=== PATIENT | female | born 1990 | race Caucasian/White ===

== ENCOUNTER 2016-07-06 05:09 | Day surgery (SDC) | payer OTHER ==
[2016-07-03 16:19] VITALS: BMI 27.3
[2016-07-06] MEDS ORDERED: LIDOCAINE HCL 1%, 10 MG/ML (20ML VIAL) ONE ×2 (09:32→10:13)
[2016-07-06] MEDS ORDERED: MIDAZOLAM HCL 2 MG/2 ML SINGLE DOSE VIAL ONE (10:03)
[2016-07-06] MEDS ORDERED: PROPOFOL 20 ML ONE ×2 (10:04→10:05)
[2016-07-06] MEDS ORDERED: BUPIVACAINE HCL/PF 0.5% (5MG/ML) 10 ML VIAL ONE (10:18)
[2016-07-06] MEDS ORDERED: LIDOCAINE HCL 1%, 10 MG/ML (20ML VIAL) IJ ONE ×2 (10:28)
[2016-07-06] MEDS ORDERED: BUPIVACAINE HCL/PF 0.5% (5MG/ML) 10 ML VIAL IJ ONE ×2 (10:28)
[2016-07-06] MEDS ORDERED: ONDANSETRON 4 MG/2 ML VIAL ONE (10:39)
--- NOTE | 2016-07-06 10:50 | OP ---
Operative Note - Note: Operative Date: 07/06/16 Pre-Operative Diagnosis: lipoma right anterior shoulder Operation: excision lipoma Findings: 8.0 cm. greatest dimension subfascial lipoma Post-Operative Diagnosis: Same as Pre-op Surgeon: Oral [employer] Laborer: Trina Manriquez Anesthesia: MAC Specimens Removed: lipoma Estimated Blood Loss (mls): 5 Operative Report Dictated: Yes
--- NOTE | 2016-07-06 11:01 | SURG ---
Surgery Client Administrator Note Client Administrator: Trina Manriquez PA-C Date of Service: 07/06/16 Diagnosis: lipoma right anterior shoulder Procedure: excision lipoma I was present for the entirety of the operative procedure. For further detail, please refer to operative report. Visit type - Case Type Case Type: Scheduled Admission - New patient This patient is new to me today: Yes Date on this admission: 07/06/16
[2016-07-06] MEDS ORDERED: ONDANSETRON 4 MG/2 ML VIAL IVPUSH PRN (11:03)
[2016-07-06 13:14] VITALS: BP 104/56; PULSE 70
[2016-07-06 15:20] VITALS: TEMP 98.3
--- NOTE | 2016-07-07 12:14 | PATH ---
Surgical Pathology Report Patient Name: AYANA DIAZ [facility]. Rec. #: [id number] /Age/Gender: 1990 (Age: 25) / F Account: [id number] Location: [facility] SURGICAL Taken: 07/06/2016 Received: 07/06/2016 Reported: 07/07/2016 Physicians: Bonilla Castillo MD Specimen(s) Received MASS RIGHT ANTERIOR SHOULDER Clinical History Mass right anterior shoulder Final Diagnosis SOFT TISSUE, RIGHT ANTERIOR SHOULDER, MASS, EXCISION: MATURE BENIGN ADIPOSE TISSUE CONSISTENT WITH LIPOMA. Electronically Signed Johnny Huerta M.D. Gross Description Received in formalin, labeled "mass right anterior shoulder" is a 5.7 x 4.0 x 2.0 cm portion of yellow, lobulated adipose tissue. Sectioning reveals homogeneous yellow, smooth fat. No areas of hemorrhage or necrosis are identified. Yard Rigger sections are submitted in 2 cassettes. /07/06/2016 saudi07/06/2016
--- NOTE | 2016-07-08 11:35 | OP ---
DATE OF OPERATION: 07/07/2016 PREOPERATIVE DIAGNOSIS: Lipoma of the right anterior shoulder. POSTOPERATIVE DIAGNOSIS: Lipoma of the right anterior shoulder. PROCEDURE: Excision, lipoma of the right anterior shoulder. SURGEON: Oral Castillo MD CRYPTOZOOLOGIST: Trina Manriquez PA-C ANESTHESIA: Local with IV sedation. OPERATIVE FINDINGS: There was an approximately 8-cm subfascial lipoma involving the right anterior shoulder. The rest of the findings were unremarkable. DESCRIPTION OF PROCEDURE: The patient was placed on the operating table in the supine position, and the right shoulder was prepped with ChloraPrep and draped in sterile fashion. A timeout was taken, and then, the incision was mapped out over the mass and the skin infiltrated with 1% lidocaine and 0.50% Marcaine in equal concentration. An incision was made with a scalpel and taken down through skin and subcutaneous tissue and the fascia. The mass was identified, and using blunt and sharp dissection, it was mobilized and excised down to its origin of the fascia of the shoulder. The pedicle was clamped, the mass excised and sent for pathological examination, and the pedicle ligated with 2-0 Vicryl suture. Hemostasis was secured with electrocautery and the wound copiously irrigated with sterile saline. The fascia was closed with interrupted 2-0 Vicryl, the deep dermis with interrupted 3-0 Vicryl, and the skin edges with 4-0 Biosyn in a subcuticular continuous fashion. Steri-Strips, fluffs, and a Tegaderm dressing were placed, and the procedure terminated at this point and the patient transferred to the postanesthesia care unit in stable condition, awake and alert. ESTIMATED BLOOD LOSS: 5 mL. REPLACEMENTS: Crystalloid. DRAINS: None. SPECIMEN: Lipoma to Pathology. I, Oral Castillo MD, was physically present in the operating room from the time the patient was placed on the operating table until she was transferred to the postanesthesia care unit in my accompaniment. Oral Castillo MD /[id number]
== END 2016-07-06 13:05 | disposition home or self-care (01) ==
LOC: JASU-SURG 05:09
PROVIDERS: ATTEND Surgery
PROC: 0JBD0ZZ Excision of Right Upper Arm Subcutaneous Tissue and Fascia, Open Approach (ICD-10-PCS; principal; 2016-07-06 10:00)
DX: D17.21 Benign lipomatous neoplasm of skin and subcutaneous tissue of right arm (principal)
CPT/HCPCS: 88304-TC; 94760

== ENCOUNTER 2021-07-16 20:40 | Emergency (ER) | payer OTHER ==
[2021-07-16 20:49] VITALS: BP 129/77; PULSE 81; TEMP 98; BMI 31.6
[2021-07-16] MEDS ORDERED: ACETAMINOPHEN 500 MG TABLET (FP) PO ONE (22:42)
[2021-07-16] MEDS ORDERED: ACETAMINOPHEN 500 MG TABLET (FP) ONE (22:43)
== END 2021-07-16 22:48 | disposition home or self-care (01) ==
LOC: FER 20:40
DX: S01.01XA Laceration without foreign body of scalp, initial encounter (principal); S06.0X0A Concussion without loss of consciousness, initial encounter; W16.212A Fall in (into) filled bathtub causing other injury, initial encounter
CPT/HCPCS: 99283-25

== ENCOUNTER 2021-07-23 08:08 | Emergency (ER) | payer OTHER ==
[2021-07-23 08:15] VITALS: BP 116/75; PULSE 70; TEMP 99; BMI 31.6
== END 2021-07-23 08:24 | disposition home or self-care (01) ==
LOC: FER 08:08
DX: S01.81XA Laceration without foreign body of other part of head, initial encounter (principal); Y99.9 Unspecified external cause status; Z48.02 Encounter for removal of sutures
CPT/HCPCS: 99281-25